=== PATIENT | female | born 1945 | race Caucasian/White ===

== ENCOUNTER → 2017-04-12 | Outpatient (CLI) | payer OTHER ==
[~2017-04-12] MED LIST: AMOX500T PO; LORT7.5T3 PO; MULT-65 PO; SIMV10TA PO; TAMS0.4C67 PO; TIMO0.5S4 OU; VITA100036 PO; VITA500C18 PO; Z.0.UNKNOWN
== END ==
LOC: CPRE 11:22
PROVIDERS: ATTEND Obstetrics & Gynecology
DX: N84.0 Polyp of corpus uteri (principal)

== ENCOUNTER → 2017-04-18 | Day surgery (SDC) | payer OTHER ==
[~2017-04-18] VITALS: Ht 154.9 cm; Wt 65.3 kg
[~2017-04-18] MED LIST changes: +*morphine SULFATE 8 MG/ML PERIprocedure ONLY ONE; +ACETAMINOPHEN/HYDROcodone 325 MG/5 MG TAB PO PRN; -AMOX500T PO; +CHLORHEXIDINE GLUCONATE 2 % 1 PACK (2 CLOTHS) TOPICAL PRN; +CLINDAMYCIN 600 MG/NS 100 ML IV SCH; +DO NOT ADM ANY ANTICOAGULANT DRUGS PRN; +GENTAMICIN/SOD CHL 80 MG/100 ML IV SCH; +INSULIN HUMAN REGULAR 1,000 UNITS/10 ML VIAL SQ PRN; +KETOROLAC TROMETHAMINE 30 MG/ML (IVP) VIAL IV PUSH ONE; +KETOROLAC TROMETHAMINE 60 MG/2 ML (IM) VIAL IM PRN; +LACTATED RINGER'S 1000 ML IV PRN; -LORT7.5T3 PO; +ONDANSETRON HCL 4 MG/2 ML VIAL IV PUSH ONE; +ONDANSETRON HCL 4 MG/2 ML VIAL IV PUSH PRN; +POVIDONE IODINE 5% (ANTISEPSIS KIT) 4 APPLICATIONS EACH NARE PRN; +PROPOFOL 200 MG/20 ML AMP IV ONE; +SODIUM CHLORID 0.9% 500 ML INJ 500 ML IV ONE; +SODIUM CHLORID 0.9% 500 ML IV PRN; +SODIUM CHLORIDE 0.9% INJ 100 ML ONE; -TAMS0.4C67 PO; -TIMO0.5S4 OU; -Z.0.UNKNOWN; +ePHEDrine/NS 25 MG/5 ML SYR IV PUSH ONE; +ePHEDrine/NS 25 MG/5 ML SYR ONE
--- NOTE | 2017-04-18 12:19 | MP ---
cc: LUIS SANZ DATE OF SURGERY 04/18/2017 PREOPERATIVE DIAGNOSIS Thickened endometrium. POSTOPERATIVE DIAGNOSIS Thickened endometrium with polyp. PROCEDURE Examination under anesthesia, hysteroscopy, uterine polypectomy with MyoSure. SURGEON Dr. Sanz ANESTHESIA General LMA. FLUIDS 400 cc crystalloids ESTIMATED BLOOD LOSS 10 cc. FLUID DEFICIT 100 cc. FINDINGS The uterus was approximately 6 to 8 weeks in size with no adnexal masses. A large uterine polyp was noted at hysteroscopy. PROCEDURES The patient was taken to the operating room where general anesthesia was found to be adequate. She was prepped and draped in the normal sterile fashion in the dorsal lithotomy position. The urinary bladder was emptied of urine using sterile technique. A speculum was placed in the vagina, a single-tooth tenaculum applied to the anterior lip of the cervix. The cervix was gently dilated with Frederick dilators sizes 9 through 20. The hysteroscope was inserted into the uterine cavity and a large uterine polyp was noted. The MyoSure device was used to resect the polyp. Both tubal ostia were visualized. The remaining endometrium appeared atrophic. The hysteroscope and MyoSure device were removed. The tenaculum was removed from the anterior lip of the cervix. Hemostasis was assured. The cutting time was approximately 1 minute and 29 seconds. The sponge, lap, needle and instrument counts were correct. The patient was awakened from anesthesia and transferred to the recovery room in stable condition. PATHOLOGY Uterine polyp. MD ULPE Iqbal/JOSE /11:54 AM /12:11 PM
--- NOTE | 2017-04-18 13:37 | RADRPT ---
EXAM DATE/TIME: 04/18/2017 12:52 [facility] COMPARISON: No previous studies available for comparison. INDICATIONS : No known injury. Pain starting after surgery today. Pain in proximal femur. MEDICAL HISTORY : None. SURGICAL HISTORY : None. ENCOUNTER: Initial ACUITY: 1 day PAIN SCORE: 4/10 LOCATION: Left Femur FINDINGS: A two view examination of the left hip was performed. The primary and secondary trabecular pattern o f the femoral neck is intact. Moderate joint space loss with mild osteophyte formation. Anatomic alig nment. The acetabulum is grossly intact. CONCLUSION: 1. Moderate degenerative osteoarthritis. Tony Mahoney MD on April 18, 2017 at 13:34 Board Certified Radiologist. This report was verified electronically.
[2017-04-18 14:55] VITALS: BP 139/72; PULSE 68; RESP 16; TEMP 97.6; O2SAT 98
== END | disposition home or self-care (01) ==
LOC: HSDC 06:52
PROVIDERS: ATTEND Obstetrics & Gynecology
DX: R93.8 Abnormal findings on diagnostic imaging of other specified body structures (principal); N84.0 Polyp of corpus uteri; M79.652 Pain in left thigh; M16.12 Unilateral primary osteoarthritis, left hip
CPT/HCPCS: 73502; 86850; 86900; 86901; 88305; J1580; J1885; J2270; J2405; J3010; J7040; J7120